=== PATIENT | female | born 1955 | race Caucasian/White ===

== ENCOUNTER 2024-09-22 13:22 | Outpatient (CLI) | payer MEDICARE | END 2024-09-22 23:59 | disposition home or self-care (01) | LOC: MRI02 13:22 | PROVIDERS: ATTEND Family Medicine Sports Medicine | DX: S83.242A Other tear of medial meniscus, current injury, left knee, initial encounter (principal); S80.00XA Contusion of unspecified knee, initial encounter; M77.9 Enthesopathy, unspecified; M79.672 Pain in left foot; M22.42 Chondromalacia patellae, left knee; M79.671 Pain in right foot; M25.462 Effusion, left knee; M25.562 Pain in left knee; X58.XXXA Exposure to other specified factors, initial encounter; Y93.89 Activity, other specified; Y92.89 Other specified places as the place of occurrence of the external cause; Y99.8 Other external cause status | CPT/HCPCS: 73721 ==